=== PATIENT | male | born 1990 | race Caucasian/White ===

== ENCOUNTER 2023-12-23 10:25 | Emergency (ER) | payer OTHER, SELFPAY ==
[2023-12-23 10:28] VITALS: BP 136/84
--- NOTE | 2023-12-23 10:47 | ED.GENMED ---
History of Present Illness
General
Chief Complaint: Abdominal Pain
Source: patient
Exam Limitations: none
Time Seen by Provider: 12/23/23 10:30
Nursing documentation reviewed up to this point in time: agreed with
Travel History
Have you had any contact with someone who has COVID-19?: No
Do you have any symptoms of coronavirus? Fever > 100 degrees, chills, cough, shortness of breath, sore throat, loss of taste or smell, muscle aches, or headache?: No
History of Present Illness
History of Present Illness:
33 yr old male presents to the ED c/o of right right side abd pain for the past 6 wks. It is intermittent associated with nausea. He feels that it gets better with food. AT times he feels pain in his back. He denies any change of bowel or
bladder. He denies any urinary frequency urgency or dysuria. No prior history of kidney stone. No prior history gallbladder problems. No blood in urine.
He has non-smoker. He does not drink alcohol. No injury.
Review of Systems
Review of Systems
Allergies reviewed?: Yes
All Other Systems: ROS reviewed and negative except as documented in HPI and ROS
Constitutional: Reports no symptoms; Denies fever, fatigue or chills
Respiratory: Reports no symptoms
Cardiac: Reports no symptoms
ABD/GI: Reports abdominal pain and nausea; Denies vomiting or diarrhea
: Reports no symptoms
Musculoskeletal: Reports no symptoms
Skin: Reports no symptoms
Neurological: Reports no symptoms
Psychiatric: Reports no symptoms
Phy Exam
General Physical Exam
General Presentation: no apparent distress
General age: appears stated age
General Skin: warm and dry
General Habitus: normal
General Mental: alert
General Hydration: appears well hydrated
Gastrointestinal Exam
Gastrointestinal Exam: soft and other (tender RUQ)
Neurological Exam
Neurological Exam: alert and oriented x3
Musculoskeletal Exam
Musculoskeletal Exam: full ROM
Skin Exam
Skin Exam: normal color and warm/dry
Psychiatric Exam
Psychiatric Exam: normal mood/affect
Course
Orders/Labs/Results
Orders:
Orders
12/23/23 10:50
IV Insert/Care/Rem.- Treatment PRN
0.9% Sodium Chloride 1000 ml [Nss] 1,000 ml IV BOLUS
Ondansetron Injectable [Zofran] 4 mg IV NOW STA
US Abdomen Complete/Upper Urgent
Comment:
Reason For Exam: ruq pain
12/23/23 11:03
Complete Blood Count/With Diff Urgent
Comprehensive Metabolic Panel Urgent
Lipase Urgent
Urinalysis Reflex To Culture Urgent
Date Specimen was Collected: 12/23/23
Time Specimen was Collected: 10:58
12/23/23 12:52
Ondansetron Injectable [Zofran] 4 mg IV NOW STA
12/23/23 12:55
Morphine Sulfate 2 mg IV NOW STA
12/23/23 13:07
Acetaminophen [Tylenol] 1,000 mg PO NOW STA
12/23/23 13:19
DDimer [D-Dimer] Urgent
12/23/23 13:56
CT Abd/pel Without Iv Or Oral Urgent
Comment:
Reason For Exam: right flank pain
Abnormal Lab Results
12/23/23
11:03
WBC 4.1 L 10^3/uL
(4.8-10.8)
MPV 10.8 H fL
(7.4-10.4)
Monocytes % 10.3 H %
(1.7-9.3)
Glucose 105 H mg/dl
(70-99)
12/23/23 11:03
12/23/23 11:03
Vital Signs
Initial and Last Documented VS:
Initial Vital Signs
Temp Pulse Resp BP Pulse Ox
97.9 F 77 18 136/84 97
12/23/23 10:28 12/23/23 10:28 12/23/23 10:12/23/23 10:28 12/23/23 10:28
Last Documented Vital Signs
Temp Pulse Resp BP Pulse Ox
97.9 F 77 18 136/84 97
12/23/23 10:28 12/23/23 10:28 12/23/23 10:28 12/23/23 10:28 12/23/23 10:28
Laundry Helper consulted with Physician
Laundry Helper consulted with physician?: Yes
Name of Physician Consulted: Noh
MDM/Problems Addressed
MDM/Problems Addressed:
1525: Patient patient declined. 26 years. Per patient, 430 okay thank you thank you for patient is a 33-year-old male presents with several weeks of pain in the right upper quadrant he does have pain in the back. He was little nauseous with this
pain. Denies any vomiting. No injury. No difficulty breathing. Instantly has some intermittent Numbness however on exam there is no obvious swelling to the calf good pulses no erythema. Patient is very minimally tender liver quadrant ultrasound
was done and negative. Urine is negative for blood. No history kidney stone however with negative ultrasound will CAT scan pending at this time.
1545: CAT scan negative for any acute findings . Mild fecal material throughout the colon no obvious cause of patient's pain however patient has had discomfort for the past several weeks and is in no acute distress and looks well.
He is afebrile with a normal white count negative D-dimer normal electrolytes normal LFTs normal CAT scan normal ultrasound. No definitive cause of patient's symptoms but no concerning findings on ER workup.
will DC with outpatient follow-up. Pt has a new pcp and new upcoming appt.
*Radiology
Radiology exam reviewed: radiology read reviewed
*Critical Care Note
Total Time (30-74mins, 75-104mins- exclusive of procedures): Not Applicable
ED Attending Note
-
Portions of this chart may have been created with voice recognition software.� Occasional wrong word or��sound alike� substitutions may have occurred due to the inherent limitations of voice recognition software.
Discharge Plan
Departure
Patient Disposition: Home (Routine Discharge)
Date of Disposition: 12/23/23
Time of Disposition: 15:49
Patient with high blood pressure during this ER visit?: Yes
Condition: Fair
Covid-19: Not Applicable
Discharge Problem:
Abdominal pain
Instructions: Abdominal Pain
Referrals:
NONE,* [Family Provider] -
Activity Restrictions/Additional Instructions:
Follow-up with your family doctor in the next several days for reevaluation of your symptoms. Return to the ER if any worsening of symptoms
Interventions
Interventions:
*Risk Screen - Suicide Last Done: 12/23/23 11:04
*General Assessment Last Done: 12/23/23 11:03
*Neglect/Abuse Screening Last Done: 12/23/23 11:04
ED- Fall Risk Assessment Last Done: 12/23/23 11:13
*ED COVID-19 Vaccine History Last Done: 12/23/23 11:03
AD-Dshlpx-Wzfkzyxwcc Assessment Last Done: 12/23/23 11:13
Discharge Date and Time
Print Language: [place]
[2023-12-23 11:04] VITALS: BMI 22.5
[2023-12-23] MEDS: ZOFRAN 4 MG IV ×2 (11:11→13:03)
[2023-12-23] MEDS: NSS 1000 IV (11:11)
[2023-12-23 11:19] LABS: % Eosinophils 0.7 % (0-6); % Immature Granulocytes 0.2 % (0-0.5); % Lymphocytes 34.2 % (20.5-51.1); % Monocytes 10.3 % (1.7-9.3); % Neutrophils 53.6 % (42.2-75.2); Absolute Lymphocytes 1.4 10^3/uL (1.2-3.4); Absolute Monocytes 0.4 10^3/uL (0.1-0.6); Absolute Neutrophils 2.2 10^3/uL (1.4-6.5); Hematocrit 43.3 % (39.0-52.0); Hemoglobin 15.5 g/dL (13.0-18.0); Mean Corp Hgb Conc. 35.8 g/dL (33.0-37.0); Mean Corpuscular Hgb 30.8 pg (27.0-31.0); Mean Corpuscular Volume 85.9 fL (80.0-94.0); Mean Platelet Volume 10.8 fL (7.4-10.4); Nucleated Red Blood Cells % 0 % (-); Platelet Count 251 10^3/uL (130-400); Red Blood Cell Count 5.04 10^6/uL (4.70-6.10); Red Cell Dist. Width 12.4 % (11.5-14.5); Urine Albumin Negative (Neg - Trace); Urine Bilirubin Negative (Negative); Urine Character Clear (Clear); Urine Color Yellow; Urine Glucose Negative (Negative); Urine Ketone Negative (Negative); Urine Leukocyte Negative (Negative); Urine Nitrite Negative (Negative); Urine Occult Blood Negative (Negative); Urine Specific Gravity 1.005 (<1.030); Urine Urobilinogen Negative (Neg - 1+); White Blood Cell Count 4.1 10^3/uL (4.8-10.8)
[2023-12-23 11:38] LABS: ALT (SGPT) 16 U/L (0-50); AST (SGOT) 27 U/L (17-59); Alkaline Phosphatase 66 U/L (38-126); Blood Urea Nitrogen 10 mg/dl (9-20); Calcium 10.1 mg/dl (8.4-10.2); Carbon Dioxide 24 mmol/L (22-30); Chloride 105 mmol/L (98-107); Estimated Creatinine Clearance 119 ml/min; Glucose 105 mg/dl (70-99); Lipase 85 U/L (23-300); Potassium 3.8 mmol/L (3.5-5.1); Sodium 140 mmol/L (135-145); Total Bilirubin 1.1 mg/dl (0.2-1.3); Total Protein 8.1 g/dl (6.3-8.2); eGFR > 60.00
[2023-12-23] MEDS: TYLENOL 1000 MG PO (13:11)
[2023-12-23 13:51] LABS: D-Dimer < 0.27 ug/mlFEU (0.00-0.50)
[2023-12-23 15:56] VITALS: BP 132/84
== END 2023-12-23 15:57 | disposition home or self-care (01) ==
LOC: EMR 10:25
PROVIDERS: Nurse Practitioner; EMERGENCY PHYSICIAN Emergency Medicine
DX: R10.9 Unspecified abdominal pain (principal)
CPT/HCPCS: 99284; 96374; 96375; 96361; 74176; 76700; 80053; 81003; 83690; 85025; 85379